=== PATIENT | male | born 1930 | race Asian ===

== ENCOUNTER 2016-12-11 14:40 | Emergency (ER) | payer MEDICARE, MEDICAID ==
[~2016-12-11] VITALS: Ht 165.1 cm; Wt 59.9 kg
[2016-12-11 15:10] VITALS: BP 143/69
[2016-12-11] MEDS ORDERED: UNOBMED (15:55)
[2016-12-11 16:01] LABS: BASOPHILS % (AUTO) 0.7 % (0.0-2.0); EOSINOPHILS % (AUTO) 2.5 % (0.0-3.0); MEAN CORPUSCULAR HEMOGLOBIN 31.6 PG (27.0-31.0); MEAN CORPUSCULAR HGB CONC 33.2 G/DL (32.0-36.0); MEAN CORPUSCULAR VOLUME 95 FL (80-99); MEAN PLATELET VOLUME 7.4 FL (6.5-10.1); NEUTROPHILS % (AUTO) 60.8 % (45.0-75.0); PLATELET COUNT 251 K/UL (150-450); RED CELL DISTRIBUTION WIDTH 11.9 % (11.6-14.8); WHITE BLOOD COUNT 10.8 K/UL (4.8-10.8)
[2016-12-11 16:37] LABS: ALANINE AMINOTRANSFERASE 14 U/L (3-41); ALBUMIN/GLOBULIN RATIO 1.2 (1.0-2.7); ANION GAP 18 (5-15); ASPARTATE AMINO TRANSFERASE 20 U/L (5-40); CALCIUM 9.3 mg/dL (8.6-10.2); CARBON DIOXIDE 23 mEQ/L (20-30); CHLORIDE 103 mEQ/L (98-107); CREATININE 1.2 mg/dL (0.7-1.2); HEMOLYSIS 0; POTASSIUM 3.9 mEQ/L (3.4-4.9); SODIUM 144 mEQ/L (135-145); TOTAL PROTEIN 6.9 g/dL (6.6-8.7)
[2016-12-11 17:07] VITALS: BP 148/73
[2016-12-11 18:04] LABS: APPEARANCE,URINE CLEAR; KETONES,URINE NEGATIVE (NEGATIVE); LEUKOCYTE ESTERASE ,URINE NEGATIVE (NEGATIVE); NITRITE,URINE NEGATIVE (NEGATIVE); PH,URINE 8 (4.5-8.0); PROTEIN,URINE NEGATIVE (NEGATIVE); UROBILINOGEN,URINE NORMAL MG/DL (0.0-1.0)
[2016-12-11] MEDS ORDERED: Azithromycin 250mg tab ORAL ONE (19:00)
[2016-12-11] MEDS ORDERED: AZITHROMYCIN250 MG ORAL (19:00)
[2016-12-11] MEDS ORDERED: ACETAMINOPHEN-1 EAC1 ORAL (19:00)
[2016-12-11 19:02] VITALS: BP 163/76
[2016-12-11 19:04] VITALS: BP 163/76
--- NOTE | 2016-12-11 19:31 | Emergency Room Report ---
History of Present Illness General Chief Complaint: Upper Respiratory Illness Source: Patient Present Illness HPI 86 YO M presents with "a few weeks" of painful cough, SOB, subjective fever/ chills. Denies other med problems. PMD prescribed cough syrup without much improvement. No recent hospitalizations. Denies abd pain, headache, neck pain/ stiffness, urinary complaints. Denies smoking, drug use. Allergies: Coded Allergies: No Known Allergies (Unverified , 12/11/16) Patient History Past Medical History: none, see triage record Past Surgical History: none Pertinent Family History: none Social History: Denies: alcohol use, drug use, smoking Immunizations: UTD Reviewed Nursing Documentation: PMH: Agreed, PSxH: Agreed Nursing Documentation-PMH Past Medical History: No History, Except For Hx Hypertension: Yes Review of Systems All Other Systems: negative except mentioned in HPI Physical Exam Vital Signs Date Time Temp Pulse Resp B/P Pulse Ox O2 Delivery O2 Flow Rate FiO2 12/11/16 14:39 97.9 60 16 165/89 99 Room Air Sp02 EP Interpretation: reviewed, normal General Appearance: normal inspection, well appearing, no apparent distress, alert, GCS 15, non-toxic Head: normocephalic, atraumatic Eyes: bilateral eye EOMI, bilateral eye PERRL ENT: normal ENT inspection, hearing grossly normal, normal voice Neck: normal inspection, full range of motion, supple, no bony tend Respiratory: normal inspection, chest non-tender, lungs clear, normal breath sounds, no rhonchi, no respiratory distress, no retraction, no accessory muscle use, no wheezing Cardiovascular #1: regular rate, rhythm, no edema Gastrointestinal: normal inspection, normal bowel sounds, non tender, soft, no guarding, no hernia Genitourinary: no CVA tenderness Musculoskeletal: normal inspection, back normal, normal range of motion, Jewel' s Sign negative Neurologic: normal inspection, alert, oriented x3, responsive, 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 Afebrile. No acute PNA on exam CXR does not demonstrate lobar PNA or obvious infiltrate Will tx for atypical PNA given symptom duration and patient's age Labs otherwise normal initial dose of Azitrho given in ED and Rx for 4 days of 250mg along with T#3 as needed PMD followup DC home EKG Diagnostic Results Rate: normal Rhythm: NSR ST Segments: no acute changes ASA given to the pt in ED: No Rhythm Strip Diag. Results EP Interpretation: yes Rate: 56 Rhythm: NSR, no PVC's, no ectopy Chest X-Ray Diagnostic Results EP Interpretation: Yes Findings: no consolidation, no effusion, no pneumothorax, no acute cardiopulmonary disease Number of Views: 1 Last Vital Signs Date Time Temp Pulse Resp B/P Pulse Ox O2 Delivery O2 Flow Rate FiO2 12/11/16 19:04 97.9 68 26 163/76 97 Room Air Status: improved Disposition: HOME, SELF-CARE Condition: Improved Scripts Acetaminophen With Codeine (T#3) (TYLENOL #3 TAB*) Y Tab 1 TAB ORAL Q8H Y for For Cough, #20 TAB Prov: DISHA WILSON M.D. 12/11/16 Azithromycin* (ZITHROMAX*) 250 Mg Tablet 250 MG ORAL DAILY for 4 Days, #4 TAB Prov: DISHA WILSON M.D. 12/11/16 Patient Instructions: Community-Acquired Pneumonia, Adult, [id number] Additional Instructions: - Take all the antibiotics as prescribed - You can take Tylenol with codeine as needed for cough - Follow up with your doctor in 2-3 days DISHA WILSON M.D. Dec 11, 2016 19:31
--- NOTE | 2016-12-16 19:19 | Cardiology Report ---
APPROVED REPORT EKG Measurement Heart [id number] Sinus bradycardia Otherwise normal ECG
--- NOTE | 2016-12-19 12:59 | Diagnostic Imaging Report ---
Indication: SOB Technique: One view of the chest Comparison: none Findings: Lungs and pleural spaces are clear. Heart size is normal. Impression: No acute process
== END 2016-12-11 19:16 | disposition home or self-care (01) ==
LOC: EDBD 14:40 → EMR 16:21
DX: J18.9 Pneumonia, unspecified organism (principal); I10 Essential (primary) hypertension
CPT/HCPCS: 36415; 71010; 80053; 81003; 85025; 87040; 93005; 99284